=== PATIENT | female | born 1990 | race Caucasian/White ===

== ENCOUNTER 2016-10-30 15:12 | Emergency (ER) | payer BC, OTHER ==
[2016-10-30 15:22] VITALS: RESP 16
--- NOTE | 2016-10-30 15:40 | ED ---
General Adult HPI - General Chief complaint: Psychiatric Symptoms Stated complaint: Mental Health Time Seen by Provider: 10/30/16 15:25 Source: patient, family, RN notes reviewed Mode of arrival: ambulatory Limitations: no limitations - History of Present Illness Initial comments: Chief complaint history of present illness a 26-year-old female here with the mother. The patient reports she's been depressed lately and is having suicidal thoughts but no specific plan. His became progressively worse over the last several weeks. Spurned on by separation from her significant other. Patient denies overdosing. Again has no specific plan. She has been followed by a psychiatrist and is on medications include Prozac and Xanax. She has been on appointment in November. - Related Data Home Medications Medication Instructions Recorded Confirmed ALPRAZolam [Xanax] 0.25 mg PO DAILY PRN 10/30/16 10/30/16 FLUoxetine HCL [PROzac] 10 mg PO DAILY 10/30/16 10/30/16 FLUoxetine HCL [PROzac] 20 mg PO DAILY 10/30/16 10/30/16 Ondansetron [Zofran] 4 mg PO Q8HR PRN 10/30/16 10/30/16 Previous Rx's Medication Instructions Recorded ALPRAZolam [Xanax] 0.25 mg PO Q8HR #18 tab 10/30/16 Allergies Allergy/AdvReac Type Severity Reaction Status Date / Time No Known Allergies Allergy Verified 10/30/16 15:46 Review of Systems ROS Statement: Those systems with pertinent positive or pertinent negative responses have been documented in the HPI. Review of systems medically the patient denies any headache chest pain shortness of breath GI/ problems. Emotionally patient reports that she is depressed with suicidal thoughts but no specific plan is to admit to. Denies ever having tried to hurt herself in the past. All systems are reviewed. Past medical problems ALLERGIES occasionally cause asthma attacks but not for long period of time. 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 Surgeries tonsils and adenoids wisdom teeth and appendectomy. Family history significant for cancers and lung and kidney. Is also Alzheimer's hypertension and her father's diagnosis of being bipolar. Patient denies any ALLERGIES. She does smoke strongly encouraged to stop drink alcohol socially. She reports in the past she has tried marijuana, acid, cocaine and mildly's. She called that use recreational. States she is not doing any of them at this time. ROS Other: All systems not noted in ROS Statement are negative. Past Medical History Past Medical History: No Reported History History of Any Multi-Drug Resistant Organisms: None Reported Past Surgical History: Adenoidectomy, Appendectomy, Tonsillectomy Past Psychological History: Anxiety, Depression Smoking Status: Current some day smoker Past Alcohol Use History: None Reported Past Drug Use History: None Reported General Exam - General Exam Comments Initial Comments: General: The patient is awake and alert, patient appears sad. States she is depressed. Suicidal thoughts without plan. Vital signs temperature 98.6 pulse 108 respiratory rate 16 pulse ox 90% room air blood pressure 141/72 Eye: Pupils are equal, round and reactive to light, extra-ocular movements are intact ; there is normal conjunctiva bilaterally. No signs of icterus. Ears, nose, mouth and throat: There are moist mucous membranes and no oral lesions. Neck: The neck is supple, there is no tenderness. Cardiovascular: There is a regular rate and rhythm. No murmur, rub or gallop is appreciated. Respiratory: Lungs are clear to auscultation, respirations are non-labored, breath sounds are equal. No wheezes, stridor, rales, or rhonchi. Gastrointestinal: Soft, non-distended, non-tender abdomen without masses or organomegaly noted. There is no rebound or guarding present. No CVA tenderness. Bowel sounds are unremarkable. Back: There is no tenderness to palpation in the midline. There is no obvious deformity. No rashes noted. Musculoskeletal: Normal ROM, no tenderness, There is no pedal edema. There is no calf tenderness or swelling. Pulses equal bilaterally 2+. Neurological: No evidence or complaints of any neuro deficits. Skin: Skin is warm and dry and no rashes or lesions are noted. Psychiatric: Cooperative, slightly flat affect, appears sad nearly tearful, history of a diagnosis of borderline disorder. States she has suicidal thoughts and is depressed.. Limitations: no limitations Course Vital Signs 10/30/16 15:19 Temperature 98.6 F Pulse Rate 108 H Respiratory 16 Rate Blood Pressure 141/72 O2 Sat by Pulse 98 Oximetry Medical Decision Making - Medical Decision Making Medical decision making; patient's drug triage was positive for benzodiazepines. Negative for aspirin or Tylenol. The patient was evaluated by the psychiatric nurse who spoke with the family at bedside as well as a psychiatrist. The family wants her to go home she agrees to go home they will be with her around the clock. The patient again denies any suicidal plan. The psychiatrist suggests Xanax 0.25 3 times a day to dispense 18 tablets and parents are to hand these out. Parents except this responsibility. - Lab Data Lab Results 10/30/16 10/30/16 10/30/16 Range/Units 15:40 15:49 15:49 Urine HCG, Qual Not Detected (Not Detectd) Salicylates <1.0 mg/dL Urine Opiates Screen Not Detected (NotDetected) Ur Oxycodone Screen Not Detected (NotDetected) Urine Methadone Screen Not Detected (NotDetected) Ur Propoxyphene Screen Not Detected (NotDetected) Acetaminophen <10.0 ug/mL Ur Barbiturates Screen Not Detected (NotDetected) U Tricyclic Antidepress Not Detected (NotDetected) Ur Phencyclidine Scrn Not Detected (NotDetected) Ur Amphetamines Screen Not Detected (NotDetected) U Methamphetamines Scrn Not Detected (NotDetected) U Benzodiazepines Scrn Detected H (NotDetected) Urine Cocaine Screen Not Detected (NotDetected) U Marijuana (THC) Screen Not Detected (NotDetected) Disposition Clinical Impression: Depression Disposition: HOME SELF-CARE Condition: Fair Instructions: Depression (ED) Additional Instructions: Follow-up with family doctor and your psychiatrist. Take Xanax 0.253 times daily. These are to be administered by her parents. Return emergency room if he have any difficulties or problems. Prescriptions: ALPRAZolam [Xanax] 0.25 mg PO Q8HR #18 tab Referrals: Noé Kunz MD [Primary Care Provider] - 1-2 days Time of Disposition: 18:02
[2016-10-30 16:11] LABS: Acetaminophen <10.0 ug/mL; Salicylate <1.0 mg/dL
[2016-10-30 18:13] VITALS: BP 126/66; PULSE 83; TEMP 98.2
== END 2016-10-30 18:16 | disposition home or self-care (01) ==
LOC: EC 15:12
DX: F32.9 Major depressive disorder, single episode, unspecified (principal); F17.200 Nicotine dependence, unspecified, uncomplicated; Z81.8 Family history of other mental and behavioral disorders; Z79.899 Other long term (current) drug therapy
CPT/HCPCS: 36415; 80306; 81025; 82075; 83520; 99284

== ENCOUNTER 2018-07-05 17:29 | Emergency (ER) | payer BC ==
[2018-07-05] MEDS ORDERED: SODIUM CHLORIDE 0.9% 500 ML 500 ML IV STA (17:46)
[2018-07-05] MEDS ORDERED: ACTIVATED CHARCOAL 50 GM/240 ML BOTTLE PO STA (17:47)
[2018-07-05 18:19] LABS: Basophils # (A) 0.1 k/uL (0-0.2); Basophils % (A) 1 %; Eosinophils # (A) 0.3 k/uL (0-0.7); Eosinophils % (A) 3 %; HCT 43.8 % (34.0-46.0); HGB 14.2 gm/dL (11.4-16.0); Lymphocytes # (A) 2.5 k/uL (1.0-4.8); Lymphocytes % (A) 26 %; MCHC 32.4 g/dL (31.0-37.0); MCV 89.5 fL (80.0-100.0); Mean Platelet Volume 7.8; Monocytes # (A) 0.3 k/uL (0-1.0); Monocytes % (A) 3 %; Neutrophils # (A) 6.4 k/uL (1.3-7.7); Neutrophils % (A) 66 %; Platelet Count 251 k/uL (150-450); RBC 4.89 m/uL (3.80-5.40); RDW 13.4 % (11.5-15.5); WBC 9.7 k/uL (3.8-10.6)
[2018-07-05 18:22] LABS: ALT 17 U/L (9-52); AST 16 U/L (14-36); Acetaminophen <10.0 ug/mL; Albumin 4.3 g/dL (3.5-5.0); Alcohol <10 mg/dL; Alkaline Phosphatase 52 U/L (38-126); Anion Gap 5 mmol/L; Blood Urea Nitrogen 14 mg/dL (7-17); Calcium 9.7 mg/dL (8.4-10.2); Carbon Dioxide 27 mmol/L (22-30); Chloride 106 mmol/L (98-107); Glucose 90 mg/dL (74-99); Magnesium 2.2 mg/dL (1.6-2.3); Phosphorus 3.8 mg/dL (2.5-4.5); Potassium 4.8 mmol/L (3.5-5.1); Salicylate <1.0 mg/dL; Sodium 138 mmol/L (137-145); Total Bilirubin 0.6 mg/dL (0.2-1.3); Total Protein 7.1 g/dL (6.3-8.2)
[2018-07-05 18:28] LABS: INR 0.9 (<1.2); Prothrombin Time 9.6 sec (9.0-12.0)
--- NOTE | 2018-07-05 18:37 | ED ---
General Adult HPI - General Source: patient, RN notes reviewed, old records reviewed Mode of arrival: wheelchair Limitations: no limitations <Jair Richard - Last Filed: 07/05/18 21:03> <Jeane Richard - Last Filed: 07/05/18 23:08> - General Chief complaint: Overdose Stated complaint: overdose Time Seen by Provider: 07/05/18 17:44 - History of Present Illness Initial comments: 28-year-old female presents with medication overdose. Patient took 10 50 mg trazodone 30 minutes prior to arrival. She states she did take some Xanax with this however was rescheduled dose and she did not take extra pills. Patient states she wants it AND. She has previous history of bipolar depression. Denies any other coingestions. Denies alcohol. Denies abdominal pain nausea vomiting. No other physical complaints. (Jair Richard) - Related Data Home Medications Medication Instructions Recorded Confirmed Ergocalciferol (Vitamin D2) 50,000 unit PO FR 07/05/18 07/05/18 [Drisdol] Norethindrone-E.estradiol-Iron 1 tab PO DAILY 07/05/18 07/05/18 [Junel Fe 1.5 mg-30 Mcg Tablet] traZODone HCL 50 mg PO BID 07/05/18 07/05/18 Previous Rx's Medication Instructions Recorded ALPRAZolam [Xanax] 0.25 mg PO Q8HR #18 tab 10/30/16 Allergies Allergy/AdvReac Type Severity Reaction Status Date / Time latex Allergy Rash/Hives Verified 07/05/18 18:30 Review of Systems ROS Other: All systems not noted in ROS Statement are negative. <Jair Richard - Last Filed: 07/05/18 21:03> ROS Other: All systems not noted in ROS Statement are negative. <Jeane Richard P - Last Filed: 07/05/18 23:08> ROS Statement: Those systems with pertinent positive or pertinent negative responses have been documented in the HPI. Past Medical History Past Medical History: No Reported History History of Any Multi-Drug Resistant Organisms: None Reported Past Surgical History: Adenoidectomy, Appendectomy, Tonsillectomy Past Psychological History: Anxiety, Depression Smoking Status: Current every day smoker Past Alcohol Use History: Rare Past Drug Use History: Marijuana <Jair Richard - Last Filed: 07/05/18 21:03> General Exam Limitations: no limitations General appearance: alert, in no apparent distress Head exam: Present: atraumatic, normocephalic Eye exam: Present: normal appearance, PERRL ENT exam: Present: normal exam Neck exam: Present: normal inspection. Absent: tenderness, meningismus Respiratory exam: Present: normal lung sounds bilaterally. Absent: respiratory distress, wheezes Cardiovascular Exam: Present: regular rate, normal rhythm GI/Abdominal exam: Present: soft. Absent: distended, tenderness, guarding, rebound Extremities exam: Present: normal inspection, normal capillary refill. Absent: pedal edema Neurological exam: Present: alert, oriented X3. Absent: motor sensory deficit Psychiatric exam: Present: depressed, anxious, suicidal ideation Skin exam: Present: warm, dry, intact. Absent: cyanosis, diaphoretic <Jair Richard - Last Filed: 07/05/18 21:03> Course <Jair Richard - Last Filed: 07/05/18 21:03> Vital Signs 07/05/18 07/05/18 07/05/18 17:37 18:00 18:20 Temperature 98.2 F Pulse Rate 86 73 Respiratory 18 14 Rate Blood Pressure 103/71 127/74 110/82 O2 Sat by Pulse 100 97 Oximetry 07/05/18 07/05/18 07/05/18 18:40 19:00 19:20 Temperature Pulse Rate 84 86 86 Respiratory 16 16 16 Rate Blood Pressure 108/71 123/98 106/72 O2 Sat by Pulse 99 98 98 Oximetry - Reevaluation(s) Reevaluation #1: 07/05/18 20:25 Case discussed with poison control recommend repeat EKG in observation for 6 hours. (Jair Richard) Reevaluation #2: 07/05/18 2100 Patient care is signed out to Dr. Richard at shift change awaiting reevaluation, medical clearance and psychiatric evaluation. (Jair Richard) EKG Findings - EKG Comments: EKG Findings:: EKG: Normal sinus rhythm with sinus arrhythmia, rate of 67, RI interval 146, QRS duration 68, QTC 388. Repeat EKG at 2102 normal sinus rhythm, rate of 76, RI interval 158, QRS duration 68, QTC 396 <Jair Richard N - Last Filed: 07/05/18 21:03> Medical Decision Making - Lab Data Result diagrams: 07/05/18 18:01 07/05/18 18:01 <Jair Richard - Last Filed: 07/05/18 21:03> - Lab Data Result diagrams: 07/05/18 18:01 07/05/18 18:01 <Jeane Richard - Last Filed: 07/05/18 23:08> - Medical Decision Making She care was signed out to me by Dr. Karen hernandez, is a 28-year-old female who was having trouble sleeping and took 10 of her 50 mg trazodone. Patient admitted evaluated and medically cleared by psychiatry, procedural recommended 6-8 hours of observation. Patient was observed until 11 PM patient having no complaints no seizure-like activity she is awake alert and oriented. Repeat EKGs were fine and decision was made the patient was stable for discharge home. (Jeane Richard) - Lab Data Lab Results 07/05/18 07/05/18 07/05/18 Range/Units 18:01 18:01 18:01 WBC 9.7 (3.8-10.6) k/uL RBC 4.89 (3.80-5.40) m/uL Hgb 14.2 (11.4-16.0) gm/dL Hct 43.8 (34.0-46.0) % MCV 89.5 (80.0-100.0) fL MCH 29.0 (25.0-35.0) pg MCHC 32.4 (31.0-37.0) g/dL RDW 13.4 (11.5-15.5) % Plt Count 251 (150-450) k/uL Neutrophils % 66 % Lymphocytes % 26 % Monocytes % 3 % Eosinophils % 3 % Basophils % 1 % Neutrophils # 6.4 (1.3-7.7) k/uL Lymphocytes # 2.5 (1.0-4.8) k/uL Monocytes # 0.3 (0-1.0) k/uL Eosinophils # 0.3 (0-0.7) k/uL Basophils # 0.1 (0-0.2) k/uL PT (9.0-12.0) sec INR (<1.2) Sodium 138 (137-145) mmol/L Potassium 4.8 (3.5-5.1) mmol/L Chloride 106 (98-107) mmol/L Carbon Dioxide 27 (22-30) mmol/L Anion Gap 5 mmol/L BUN 14 (7-17) mg/dL Creatinine 0.78 (0.52-1.04) mg/dL Est GFR (CKD-EPI)AfAm >90 (>60 ml/min/1.73 sqM) Est GFR (CKD-EPI)NonAf >90 (>60 ml/min/1.73 sqM) Glucose 90 (74-99) mg/dL Plasma Lactic Acid Damien 0.9 (0.7-2.0) mmol/L Calcium 9.7 (8.4-10.2) mg/dL Phosphorus 3.8 (2.5-4.5) mg/dL Magnesium 2.2 (1.6-2.3) mg/dL Total Bilirubin 0.6 (0.2-1.3) mg/dL AST 16 (14-36) U/L ALT 17 (9-52) U/L Alkaline Phosphatase 52 (38-126) U/L Total Protein 7.1 (6.3-8.2) g/dL Albumin 4.3 (3.5-5.0) g/dL Urine Color Urine Appearance (Clear) Urine pH (5.0-8.0) Ur Specific Max (1.001-1.035) Urine Protein (Negative) Urine Glucose (UA) (Negative) Urine Ketones (Negative) Urine Blood (Negative) Urine Nitrite (Negative) Urine Bilirubin (Negative) Urine Urobilinogen (<2.0) mg/dL Ur Leukocyte Esterase (Negative) Urine HCG, Qual (Not Detectd) Salicylates <1.0 mg/dL Urine Opiates Screen (NotDetected) Ur Oxycodone Screen (NotDetected) Urine Methadone Screen (NotDetected) Ur Propoxyphene Screen (NotDetected) Acetaminophen <10.0 ug/mL Ur Barbiturates Screen (NotDetected) U Tricyclic Antidepress (NotDetected) Ur Phencyclidine Scrn (NotDetected) Ur Amphetamines Screen (NotDetected) U Methamphetamines Scrn (NotDetected) U Benzodiazepines Scrn (NotDetected) Urine Cocaine Screen (NotDetected) U Marijuana (THC) Screen (NotDetected) Serum Alcohol <10 mg/dL 07/05/18 07/05/18 07/05/18 Range/Units 18:01 19:56 19:56 WBC (3.8-10.6) k/uL RBC (3.80-5.40) m/uL Hgb (11.4-16.0) gm/dL Hct (34.0-46.0) % MCV (80.0-100.0) fL MCH (25.0-35.0) pg MCHC (31.0-37.0) g/dL RDW (11.5-15.5) % Plt Count (150-450) k/uL Neutrophils % % Lymphocytes % % Monocytes % % Eosinophils % % Basophils % % Neutrophils # (1.3-7.7) k/uL Lymphocytes # (1.0-4.8) k/uL Monocytes # (0-1.0) k/uL Eosinophils # (0-0.7) k/uL Basophils # (0-0.2) k/uL PT 9.6 (9.0-12.0) sec INR 0.9 (<1.2) Sodium (137-145) mmol/L Potassium (3.5-5.1) mmol/L Chloride (98-107) mmol/L Carbon Dioxide (22-30) mmol/L Anion Gap mmol/L BUN (7-17) mg/dL Creatinine (0.52-1.04) mg/dL Est GFR (CKD-EPI)AfAm (>60 ml/min/1.73 sqM) Est GFR (CKD-EPI)NonAf (>60 ml/min/1.73 sqM) Glucose (74-99) mg/dL Plasma Lactic Acid Damien (0.7-2.0) mmol/L Calcium (8.4-10.2) mg/dL Phosphorus (2.5-4.5) mg/dL Magnesium (1.6-2.3) mg/dL Total Bilirubin (0.2-1.3) mg/dL AST (14-36) U/L ALT (9-52) U/L Alkaline Phosphatase (38-126) U/L Total Protein (6.3-8.2) g/dL Albumin (3.5-5.0) g/dL Urine Color Light Yellow Urine Appearance Clear (Clear) Urine pH 6.0 (5.0-8.0) Ur Specific Max 1.018 (1.001-1.035) Urine Protein Negative (Negative) Urine Glucose (UA) Negative (Negative) Urine Ketones Trace H (Negative) Urine Blood Negative (Negative) Urine Nitrite Negative (Negative) Urine Bilirubin Negative (Negative) Urine Urobilinogen <2.0 (<2.0) mg/dL Ur Leukocyte Esterase Negative (Negative) Urine HCG, Qual Not Detected (Not Detectd) Salicylates mg/dL Urine Opiates Screen Not Detected (NotDetected) Ur Oxycodone Screen Not Detected (NotDetected) Urine Methadone Screen Not Detected (NotDetected) Ur Propoxyphene Screen Not Detected (NotDetected) Acetaminophen ug/mL Ur Barbiturates Screen Not Detected (NotDetected) U Tricyclic Antidepress Not Detected (NotDetected) Ur Phencyclidine Scrn Not Detected (NotDetected) Ur Amphetamines Screen Not Detected (NotDetected) U Methamphetamines Scrn Not Detected (NotDetected) U Benzodiazepines Scrn Detected H (NotDetected) Urine Cocaine Screen Not Detected (NotDetected) U Marijuana (THC) Screen Not Detected (NotDetected) Serum Alcohol mg/dL Disposition <Jair Richard N - Last Filed: 07/05/18 21:03> Is patient prescribed a controlled substance at d/c from ED?: No <Jeane Richard P - Last Filed: 07/05/18 23:08> Clinical Impression: Accidental drug ingestion Disposition: HOME SELF-CARE Condition: Stable Instructions (If sedation given, give patient instructions): Adult Overdose (ED) Referrals: Noé Kunz MD [Primary Care Provider] - 1-2 days
[2018-07-05 20:03] LABS: Appearance,Urine Clear (Clear); Bilirubin,Urine Negative (Negative); Blood,Urine Negative (Negative); Color,Urine Light Yellow; Glucose,Urine (UA) Negative (Negative); Ketones,Urine Trace (Negative); Leukocyte Esterase,Urine Negative (Negative); Nitrite,Urine Negative (Negative); Protein,Urine Negative (Negative); Specific Gravity,Urine 1.018 (1.001-1.035); Urobilinogen,Urine <2.0 mg/dL (<2.0)
[2018-07-05 20:35] LABS: Amphetamine Screen,Urine Not Detected (NotDetected); Barbiturate Screen,Urine Not Detected (NotDetected); Benzodiazepines Screen,Urine Detected (NotDetected); Cocaine Screen,Urine Not Detected (NotDetected); Methadone Screen, Urine Not Detected (NotDetected); Opiate Screen,Urine Not Detected (NotDetected); Oxycodone Screen, Urine Not Detected (NotDetected); Phencyclidine Screen,Urine Not Detected (NotDetected); Tricyclic Antidepressant,Urine Not Detected (NotDetected); Urn Cannabinoid Scrn Not Detected (NotDetected)
[2018-07-05 23:25] VITALS: BP 116/83; PULSE 90; RESP 19; TEMP 98.9
== END 2018-07-05 23:24 | disposition home or self-care (01) ==
LOC: EC 17:29
DX: T43.211A Poisoning by selective serotonin and norepinephrine reuptake inhibitors, accidental (unintentional), initial encounter (principal); F32.9 Major depressive disorder, single episode, unspecified; F41.9 Anxiety disorder, unspecified; F17.200 Nicotine dependence, unspecified, uncomplicated; Z79.3 Long term (current) use of hormonal contraceptives; Z79.899 Other long term (current) drug therapy; Z91.040 Latex allergy status
CPT/HCPCS: 36415; 80053; 80306; 80320; 80329; 81003; 81025; 83520; 83605; 83735; 84100; 85025; 85610; 93005; 96360; 96361; 99285